=== PATIENT | male | born 1995 | race Caucasian/White ===

== ENCOUNTER 2019-06-26 05:53 | Emergency (ER) | payer OTHER ==
[2019-06-26 06:28] VITALS: BP 129/74; PULSE 89; RESP 18; TEMP 98
--- NOTE | 2019-06-26 06:28 | ED ---
General Adult HPI - General Stated complaint: [facility] exposure Time Seen by Provider: 06/26/19 06:12 Source: patient, RN notes reviewed Mode of arrival: ambulatory Limitations: no limitations - History of Present Illness Initial comments: This a 23-year-old male presented for blood exposure. Patient works for [employer] and states that he was exposed to a large amount of blood on is clothes, upper extremities there is is no open wounds on him. Patient states that he was sent to the ER for testing. He has no complaints otherwise denies any exposure to his face. - Related Data Allergies Allergy/AdvReac Type Severity Reaction Status Date / Time amoxicillin Allergy Rash/Hives Verified 06/26/19 06:19 Review of Systems ROS Statement: Those systems with pertinent positive or pertinent negative responses have been documented in the HPI. ROS Other: All systems not noted in ROS Statement are negative. Past Medical History Past Medical History: No Reported History History of Any Multi-Drug Resistant Organisms: None Reported Past Surgical History: No Surgical Hx Reported Past Psychological History: No Psychological Hx Reported Smoking Status: Never smoker Past Alcohol Use History: Occasional Past Drug Use History: None Reported General Exam Limitations: no limitations General appearance: alert, in no apparent distress Head exam: Present: atraumatic, normocephalic, normal inspection Eye exam: Present: normal appearance, PERRL, EOMI. Absent: scleral icterus, conjunctival injection, periorbital swelling Respiratory exam: Present: normal lung sounds bilaterally. Absent: respiratory distress, wheezes, rales, rhonchi, stridor Cardiovascular Exam: Present: regular rate, normal rhythm, normal heart sounds. Absent: systolic murmur, diastolic murmur, rubs, gallop, clicks Neurological exam: Present: alert, oriented X3, CN II-XII intact Skin exam: Present: warm, dry, intact, normal color. Absent: rash Course Vital Signs 06/26/19 06:14 Temperature 98 F Pulse Rate 89 Respiratory 18 Rate Blood Pressure 129/74 O2 Sat by Pulse 97 Oximetry Medical Decision Making - Medical Decision Making 23-year-old male presented for blood exposure. He did have testing performed. Patient will follow-up for repeat testing declines HIV prophylaxis. Disposition Clinical Impression: Exposure to blood Disposition: HOME SELF-CARE Condition: Stable Instructions (If sedation given, give patient instructions): Body Substance Exposure (ED) Additional Instructions: Please return to the Emergency Department if symptoms worsen or any other concerns. Is patient prescribed a controlled substance at d/c from ED?: No Referrals: None,Stated [Primary Care Provider] - 1-2 days Time of Disposition: 06:28
[2019-06-26 17:53] LABS: Hepatitis C IgG Antibody Non-Reactive (Non-Reactive)
[2019-06-26 18:26] LABS: HIV 1 AB Non-Reactive (Non-Reactive); HIV AB P24 Non-Reactive (Non-Reactive); HIV P24 AG Non-Reactive (Non-Reactive)
== END 2019-06-26 06:33 | disposition home or self-care (01) ==
LOC: EC 05:53
DX: Z77.21 Contact with and (suspected) exposure to potentially hazardous body fluids (principal); Z88.0 Allergy status to penicillin; Y99.0 Civilian activity done for income or pay; Z53.20 Procedure and treatment not carried out because of patient's decision for unspecified reasons
CPT/HCPCS: 36415; 86706; 86803; 87340; 87390; 99282

== ENCOUNTER → 2023-03-11 | Outpatient (CLI) | payer BC ==
--- NOTE | 2023-03-11 14:15 | US ---
EXAMINATION TYPE: US scrotum with doppler. Grayscale and color Doppler Duplex imaging performed of santos aleman scrotum. DATE OF EXAM: 03/11/2023 COMPARISON: NONE CLINICAL INDICATION: Male, 27 years old with history of R10.2 PELVIC AND PERINEAL PAIN; pain left raquel e since November. EXAM MEASUREMENTS: TESTICLES: Right Testicle: 3.7 x 1.9 x 2.5 cm Left Testicle: 3.8 x 2.3 x 2.6 cm EPIDIDYMIS HEAD: Right Epididymis: 1.0 x .7 x 1.0 cm Left Epididymis: .9 x 1.2 x .9 cm, 3 mm epididymal head cyst. Doppler performed to assess for testicular vascularity; good bilateral color flow and waveforms are s een. There is no evidence of testicular torsion. Presence of hydroceles: No Presence of varicoceles: No IMPRESSION: No evidence of testicular torsion or mass.
== END | disposition home or self-care (01) ==
LOC: RADUSWWP 13:36
PROVIDERS: ATTEND Family Medicine
DX: R10.2 Pelvic and perineal pain (principal)
CPT/HCPCS: 76870; 93975

== ENCOUNTER 2024-01-15 10:20 | Emergency (ER) | payer BC ==
[2024-01-15 10:35] VITALS: BP 126/78; PULSE 72; RESP 18; TEMP 98
--- NOTE | 2024-01-15 11:18 | XR ---
EXAMINATION TYPE: XR shoulder complete LT DATE OF EXAM: 01/15/2024 11:13 AM CLINICAL INDICATION:Male, 28 years old with history of pain; COMPARISON: None TECHNIQUE: XR shoulder complete LT; examined in AP, internally rotated and scapular Y projections. FINDINGS: No evidence of acute osseous pathology, joint dislocation, or soft tissue swelling. The remaining po rtions of the visualized chest are unremarkable. Mild degeneration changes of the left acromion and distal clavicle. IMPRESSION: No acute osseous pathology. Mild shoulder osteoarthrosis.
--- NOTE | 2024-01-15 11:23 | ED ---
Upper Extremity HPI - General Chief Complaint: Extremity Injury, Upper Stated Complaint: Hockey-L Shoulder Injury Time Seen by Provider: 01/15/24 10:39 Source: patient, RN notes reviewed Mode of arrival: ambulatory Limitations: no limitations - History of Present Illness Initial Comments: 28-year-old male presents emergency department complaint left shoulder pain. Patient states he was playing hockey last night when he went to check player into the boards states his shoulder pad pushed up and states he struck his left shoulder. He has pain at the top of the shoulder states he has pain with internal rotation otherwise just mild soreness. - Related Data Allergies Allergy/AdvReac Type Severity Reaction Status Date / Time amoxicillin Allergy Rash/Hives Verified 01/15/24 10:32 Review of Systems ROS Statement: Those systems with pertinent positive or pertinent negative responses have been documented in the HPI. ROS Other: All systems not noted in ROS Statement are negative. Past Medical History Past Medical History: No Reported History History of Any Multi-Drug Resistant Organisms: None Reported Past Surgical History: No Surgical Hx Reported Past Psychological History: No Psychological Hx Reported Smoking Status: Never smoker Past Alcohol Use History: Occasional Past Drug Use History: None Reported General Exam Limitations: no limitations General appearance: alert, in no apparent distress Head exam: Present: atraumatic, normocephalic, normal inspection Respiratory exam: Present: normal lung sounds bilaterally. Absent: respiratory distress, wheezes, rales, rhonchi, stridor Cardiovascular Exam: Present: regular rate, normal rhythm, normal heart sounds. Absent: systolic murmur, diastolic murmur, rubs, gallop, clicks Extremities exam: Present: other (Left shoulder there is mild tenderness noted over the AC joint, full range of motion neurovascular intact minimal discomfort with internal rotation) Course Vital Signs 01/15/24 10:30 Temperature 98 F Pulse Rate 72 Respiratory 18 Rate Blood Pressure 126/78 O2 Sat by Pulse 98 Oximetry Medical Decision Making - Medical Decision Making Was pt. sent in by a medical professional or institution ([facility], LA[employer], urgent care, hospital, or [facility]...) When possible be specific @ -No Did you speak to anyone other than the patient for history (EMS, parent, family, police, friend...)? What history was obtained from this source @ -No Did you review nursing and triage notes (agree or disagree)? Why? @ -I reviewed and agree with nursing and triage notes Were old charts reviewed (outside hosp., previous admission, EMS record, old EKG, old radiological studies, urgent care reports/EKG's, [facility] records)? Report findings @ -No old charts were reviewed Differential Diagnosis (chest pain, altered mental status, abdominal pain women, abdominal pain men, vaginal bleeding, weakness, fever, dyspnea, syncope, headache, dizziness, GI bleed, back pain, seizure, CVA, palpatations, mental h ealth, musculoskeletal)? @ -Shoulder separation, dislocation, arm fracture, clavicle fracture EKG interpreted by me (3pts min.). @ -None X-rays interpreted by me (1pt min.). @ -X-ray left shoulder no acute or malady CT interpreted by me (1pt min.). @ -None done U/S interpreted by me (1pt. min.). @ -None done What testing was considered but not performed or refused? (CT, X-rays, U/S, labs)? Why? @ -None What meds were considered but not given or refused? Why? @ -None Did you discuss the management of the patient with other professionals (professionals i.e. , PA, LAWN SERVICE WORKER, lab, RT, psych nurse, licensed master social worker, boot repairer, teacher, personnel officer, case mgr)? Give summary @ -No Was smoking cessation discussed for >3mins.? @ -No Was critical care preformed (if so, how long)? @ -No Were there social determinants of health that impacted care today? How? (Homelessness, low income, unemployed, alcoholism, drug addiction, transportation, low edu. Level, literacy, decrease access to med. care, halfway, rehab)? @ -No Was there de-escalation of care discussed even if they declined (Discuss DNR or withdrawal of care, Hospice)? DNR status @ -No What co-morbidities impacted this encounter? (DM, HTN, Smoking, COPD, CAD, Cancer, CVA, ARF, Chemo, Hep., AIDS, mental health diagnosis, sleep apnea, morbid obesity)? @ -None Was patient admitted / discharged? Hospital course, mention meds given and route, prescriptions, significant lab abnormalities, going to OR and other pertinent info. @ -Discharge patient has a left AC sprain will be discharged in stable condition with close follow-up with orthopedics. Undiagnosed new problem with uncertain prognosis? @ -No Drug Therapy requiring intensive monitoring for toxicity (Heparin, Nitro, Insulin, Cardizem)? @ -No Were any procedures done? @ -No Diagnosis/symptom? @ -Left shoulder AC sprain Acute, or Chronic, or Acute on Chronic? @ -Acute Uncomplicated (without systemic symptoms) or Complicated (systemic symptoms)? @ -Uncomplicated Side effects of treatment? @ -No Exacerbation, Progression, or Severe Exacerbation? @ -No Poses a threat to life or bodily function? How? (Chest pain, USA, ID, pneumonia, PE, COPD, DKA, ARF, appy, cholecystitis, CVA, Diverticulitis, Homicidal, Suicidal, threat to staff... and all critical care pts) @ -No Disposition Clinical Impression: Sprain of left acromioclavicular joint Disposition: HOME SELF-CARE Condition: Stable Instructions (If sedation given, give patient instructions): Acromioclavicular Separation (ED), Shoulder Sprain (ED) Additional Instructions: Please return to the Emergency Department if symptoms worsen or any other concerns. Is patient prescribed a controlled substance at d/c from ED?: No Referrals: Marianna Mohan NPC [Primary Care Provider] - 1-2 days Reynold Armstrong MD [STAFF PHYSICIAN] - 1-2 days Time of Disposition: 11:23
== END 2024-01-15 11:44 | disposition home or self-care (01) ==
LOC: EC 10:20
DX: S43.52XA Sprain of left acromioclavicular joint, initial encounter (principal); Z88.0 Allergy status to penicillin; X50.0XXA Overexertion from strenuous movement or load, initial encounter; Y93.22 Activity, ice hockey
CPT/HCPCS: 99283